=== PATIENT | male | born 1960 | race Caucasian/White ===

== ENCOUNTER 2022-03-29 05:34 | Inpatient (IN) | payer MEDICARE, OTHER ==
[~2022-03-29] VITALS: Ht 167.6 cm; Wt 89.8 kg
[2022-03-29] MEDS ORDERED: LIDOCAINE HCL 2% 20 ML VIAL ONE (06:11)
[2022-03-29 06:48] LABS: HEMATOCRIT 41.7 % (36.7-47.1); MEAN CORPUSCULAR HEMOGLOBIN 28.3 uug (23.8-33.4); MEAN CORPUSCULAR VOLUME 85.2 fL (73.0-96.2); PLATELET COUNT (AUTO) 221 K/uL (152-348)
[2022-03-29 07:08] LABS: CARBON DIOXIDE 29 mmol/L (21-32); CHLORIDE 99 mmol/L (98-107); GLUCOSE 94 mg/dL (74-106); POTASSIUM 4.2 mmol/L (3.5-5.1); UREA NITROGEN, BLOOD 20 mg/dL (7-18)
[2022-03-29 07:13] LABS: ALANINE AMINOTRANSFERASE 20 U/L (16-63); ALKALINE PHOSPHATASE 63 U/L (50-136); ASPARTATE AMINOTRANSFERASE 21 U/L (15-37); BILIRUBIN,DIRECT 0.1 mg/dL (0.0-0.2); BILIRUBIN,TOTAL 0.3 mg/dL (0.2-1.0); TOTAL PROTEIN, SERUM 6.1 g/dL (6.4-8.2)
[2022-03-29 07:29] LABS: ACETAMINOPHEN < 2.0 ug/mL (10-30)
[2022-03-29] MEDS ORDERED: IBUPROFEN 600 MG TABLET PO ONE (07:30)
[2022-03-29] MEDS ORDERED: IBUPROFEN 600 MG TABLET ONE (07:47)
[2022-03-29] MEDS ORDERED: LORAZEPAM 0.5 MG TABLET PO PRN (08:30)
[2022-03-29] MEDS ORDERED: MAGNESIUM HYDROXIDE 30 ML LIQUID UDC PO PRN (08:30)
[2022-03-29] MEDS ORDERED: MAG HYDROX/AL HYDROX/SIMETH 30 ML LIQUID UDC PO PRN (08:30)
[2022-03-29] MEDS ORDERED: BLOOD SUGAR DIAGNOSTIC 1 EACH STRIP VI ONE (09:00)
[2022-03-29 10:37] VITALS: BP 109/83
[2022-03-29] MEDS ORDERED: ROSU20TA2 PO (11:40)
[2022-03-29] MEDS ORDERED: SULF1TAB48 PO (11:40)
[2022-03-29] MEDS ORDERED: DULO60CA45 PO (11:40)
[2022-03-29] MEDS ORDERED: FURO40TA5 PO (11:40)
[2022-03-29] MEDS ORDERED: BACL20TA PO (11:40)
[2022-03-29] MEDS ORDERED: GABA-532 PO (11:40)
[2022-03-29] MEDS ORDERED: ENTE0.5T11 PO (11:40)
[2022-03-29] MEDS ORDERED: CARB200T PO ×2 (11:40)
[2022-03-29] MEDS ORDERED: PRED20TA PO (11:40)
[2022-03-29 11:45] LABS: ETHANOL < 3 MG/DL (0-0)
[2022-03-29] MEDS ORDERED: DULOXETINE 30 MG CAPSULE.DR PO SCH (13:00)
[2022-03-29] MEDS ORDERED: PRED10TA PO (14:09)
[2022-03-29 15:08] VITALS: BP 104/72
[2022-03-29] MEDS: BACLOFEN 20 MG TABLET PO SCH ×2 (17:49→21:00)
[2022-03-29] MEDS: DULOXETINE 60 MG CAPSULE.DR PO SCH (17:49)
[2022-03-29 18:13] LABS: *BILIRUBIN,URIN 1+ (NEGATIVE); *BLOOD, URINE NEGATIVE (NEGATIVE); *CLARITY,URINE CLEAR (CLEAR); *COLOR,URINE DARK YELLOW (YELLOW); *KETONES,URINE NEGATIVE (NEGATIVE); *UROBILINOGEN,URINE 0.2 E.U./dl (NORMAL); LEUKOCYTE ESTERASE ,URINE NEGATIVE (NEGATIVE); NITRITE, URINE NEGATIVE (NEGATIVE); PH,URINE 5.5 (5.0-8.0); UGLUCOSE NEGATIVE (NEGATIVE)
[2022-03-29 20:04] VITALS: BP 102/64
[2022-03-29 20:12] LABS: *AMPHETAMINE, URINE NEGATIVE (NEGATIVE); *CANNABINOID, URINE NEGATIVE (NEGATIVE); *COCCAINE, URINE NEGATIVE (NEGATIVE); *OPIATE, URINE NEGATIVE (NEGATIVE); *PHENCYCLIDINE SCREEN,URINE NEGATIVE (NEGATIVE)
[2022-03-29] MEDS: ATORVASTATIN 40 MG TABLET PO SCH (21:00)
[2022-03-29 22:53] VITALS: BP 100/60
[2022-03-30] MEDS: TEMAZEPAM 7.5 MG CAPSULE PO PRN (00:13)
[2022-03-30 06:17] VITALS: BP 112/78
[2022-03-30 07:02] LABS: HEMATOCRIT 41.4 % (36.7-47.1); MEAN CORPUSCULAR HEMOGLOBIN 28.4 uug (23.8-33.4); MEAN CORPUSCULAR VOLUME 84.8 fL (73.0-96.2); PLATELET COUNT (AUTO) 219 K/uL (152-348)
[2022-03-30 07:18] LABS: CREATININE 0.9 mg/dL (0.6-1.3); POTASSIUM 4.1 mmol/L (3.5-5.1)
[2022-03-30 07:30] VITALS: BP 115/74
[2022-03-30] MEDS ORDERED: predniSONE 20 MG TABLET PO SCH (09:00)
[2022-03-30] MEDS: ENTECAVIR 0.5MG TABLET PO SCH (09:31)
[2022-03-30] MEDS: predniSONE 10 MG TABLET PO SCH (09:31)
[2022-03-30] MEDS: BACLOFEN 20 MG TABLET PO SCH ×4 (09:32→20:04)
[2022-03-30] MEDS ORDERED: ECULIZUMAB IV ONE ×2 (13:00→14:00)
[2022-03-30] MEDS: DULOXETINE 30 MG CAPSULE.DR PO SCH (13:15)
[2022-03-30 16:00] VITALS: BP 100/78
[2022-03-30] MEDS: DULOXETINE 60 MG CAPSULE.DR PO SCH (17:54)
[2022-03-30] MEDS: ACETAMINOPHEN 325 MG TABLET PO PRN (19:57)
[2022-03-30] MEDS: ATORVASTATIN 40 MG TABLET PO SCH (20:04)
[2022-03-30 20:06] VITALS: BP 119/85
[2022-03-31 07:30] VITALS: BP 103/64
[2022-03-31] MEDS: BACLOFEN 20 MG TABLET PO SCH ×4 (09:04→21:00)
[2022-03-31] MEDS: predniSONE 10 MG TABLET PO SCH (09:06)
[2022-03-31] MEDS: ENTECAVIR 0.5MG TABLET PO SCH (09:07)
[2022-03-31] MEDS: DULOXETINE 30 MG CAPSULE.DR PO SCH (13:12)
[2022-03-31] MEDS ORDERED: CARBAMAZEPINE 200 MG TABLET PO SCH ×2 (14:00→18:00)
[2022-03-31] MEDS ORDERED: GABAPENTIN 100 MG CAPSULE PO SCH (14:00)
[2022-03-31 16:00] VITALS: BP 108/72
[2022-03-31] MEDS ORDERED: CARB-103 PO ×2 (16:42)
[2022-03-31] MEDS ORDERED: GABA300C PO (16:43)
[2022-03-31] MEDS: SULFAMETH/TRIMETH 800/160 MG TABLET PO SCH (17:21)
[2022-03-31] MEDS: GABAPENTIN 300 MG CAPSULE PO SCH (17:27)
[2022-03-31] MEDS: DULOXETINE 60 MG CAPSULE.DR PO SCH (17:28)
[2022-03-31] MEDS: CARBAMAZEPINE 200 MG PO SCH (17:28)
[2022-03-31] MEDS ORDERED: CARBAMAZEPINE XR 200 MG TAB.SR.12H PO SCH (18:00)
[2022-03-31 21:00] VITALS: BP 110/80
[2022-03-31] MEDS: ATORVASTATIN 40 MG TABLET PO SCH (21:00)
[2022-04-01] MEDS: ACETAMINOPHEN 325 MG TABLET PO PRN ×2 (06:46→23:56)
[2022-04-01 07:30] VITALS: BP 115/96
[2022-04-01] MEDS ORDERED: CARBAMAZEPINE XR 200 MG TAB.SR.12H PO SCH (09:00)
[2022-04-01] MEDS: BACLOFEN 20 MG TABLET PO SCH ×4 (09:18→20:07)
[2022-04-01] MEDS: CARBAMAZEPINE 200 MG PO SCH ×2 (09:18→17:08)
[2022-04-01] MEDS: predniSONE 10 MG TABLET PO SCH (09:19)
[2022-04-01] MEDS: ENTECAVIR 0.5MG TABLET PO SCH (09:19)
[2022-04-01] MEDS: GABAPENTIN 300 MG CAPSULE PO SCH ×3 (09:23→17:05)
[2022-04-01] MEDS: SULFAMETH/TRIMETH 800/160 MG TABLET PO SCH (09:23)
[2022-04-01] MEDS: DULOXETINE 30 MG CAPSULE.DR PO SCH (12:50)
[2022-04-01 16:00] VITALS: BP 111/88
[2022-04-01] MEDS: DULOXETINE 60 MG CAPSULE.DR PO SCH (17:05)
[2022-04-01] MEDS: ATORVASTATIN 40 MG TABLET PO SCH (20:07)
[2022-04-01 20:24] VITALS: BP 126/64
[2022-04-02] MEDS: ACETAMINOPHEN 325 MG TABLET PO PRN ×2 (06:49→20:21)
[2022-04-02 07:30] VITALS: BP 111/78
[2022-04-02] MEDS: SULFAMETH/TRIMETH 800/160 MG TABLET PO SCH (09:11)
[2022-04-02] MEDS: BACLOFEN 20 MG TABLET PO SCH ×4 (09:11→20:21)
[2022-04-02] MEDS: GABAPENTIN 300 MG CAPSULE PO SCH ×3 (09:11→17:23)
[2022-04-02] MEDS: ENTECAVIR 0.5MG TABLET PO SCH (09:11)
[2022-04-02] MEDS: CARBAMAZEPINE 200 MG PO SCH ×2 (09:12→17:25)
[2022-04-02] MEDS: predniSONE 10 MG TABLET PO SCH (09:12)
[2022-04-02] MEDS: DULOXETINE 30 MG CAPSULE.DR PO SCH (12:31)
[2022-04-02 16:00] VITALS: BP 117/75
[2022-04-02] MEDS: DULOXETINE 60 MG CAPSULE.DR PO SCH (17:23)
[2022-04-02 20:00] VITALS: BP 122/86
[2022-04-02] MEDS: ATORVASTATIN 40 MG TABLET PO SCH (20:20)
[2022-04-03] MEDS: ACETAMINOPHEN 325 MG TABLET PO PRN ×2 (02:51→10:11)
[2022-04-03 08:09] VITALS: BP 92/60
[2022-04-03] MEDS: ENTECAVIR 0.5MG TABLET PO SCH (09:23)
[2022-04-03] MEDS: BACLOFEN 20 MG TABLET PO SCH ×4 (09:23→20:22)
[2022-04-03] MEDS: SULFAMETH/TRIMETH 800/160 MG TABLET PO SCH (09:23)
[2022-04-03] MEDS: GABAPENTIN 300 MG CAPSULE PO SCH ×3 (09:23→16:23)
[2022-04-03] MEDS: predniSONE 10 MG TABLET PO SCH (09:23)
[2022-04-03] MEDS: CARBAMAZEPINE 200 MG PO SCH ×2 (09:24→17:31)
[2022-04-03] MEDS: DULOXETINE 30 MG CAPSULE.DR PO SCH (12:54)
[2022-04-03 16:14] VITALS: BP 122/76
[2022-04-03] MEDS: DULOXETINE 60 MG CAPSULE.DR PO SCH (16:23)
[2022-04-03 20:00] VITALS: BP 111/78
[2022-04-03] MEDS: ATORVASTATIN 40 MG TABLET PO SCH (20:22)
[2022-04-04] MEDS: TEMAZEPAM 7.5 MG CAPSULE PO PRN (00:20)
[2022-04-04] MEDS: SULFAMETH/TRIMETH 800/160 MG TABLET PO SCH (09:06)
[2022-04-04] MEDS: GABAPENTIN 300 MG CAPSULE PO SCH (09:06)
[2022-04-04] MEDS: BACLOFEN 20 MG TABLET PO SCH (09:07)
[2022-04-04] MEDS: predniSONE 10 MG TABLET PO SCH (09:08)
[2022-04-04] MEDS: CARBAMAZEPINE 200 MG PO SCH (09:08)
[2022-04-04] MEDS: ENTECAVIR 0.5MG TABLET PO SCH (09:09)
[2022-04-04] MEDS ORDERED: ARGININE/GLUTAMINE/CALCIUM BMB 1 EACH POWD.PACK PO SCH (10:00)
[2022-04-04 10:10] VITALS: BP 137/70
== END 2022-04-04 11:15 | disposition home or self-care (01) | DRG 885 ==
LOC: ER 05:36 → GPS 08:00
PROVIDERS: ADMIT Psychiatry & Neurology Psychosomatic Medicine; ATTEND Nurse Practitioner Acute Care
PROC: 0HQEXZZ Repair Left Lower Arm Skin, External Approach (ICD-10-PCS; principal; 2022-03-29)
DX: F33.0 Major depressive disorder, recurrent, mild (principal); N17.9 Acute kidney failure, unspecified; E44.0 Moderate protein-calorie malnutrition; D68.59 Other primary thrombophilia; G36.0 Neuromyelitis optica [Devic]; E87.1 Hypo-osmolality and hyponatremia; S51.812A Laceration without foreign body of left forearm, initial encounter; S51.811A Laceration without foreign body of right forearm, initial encounter; X78.9XXA Intentional self-harm by unspecified sharp object, initial encounter; Y92.89 Other specified places as the place of occurrence of the external cause; E66.01 Morbid (severe) obesity due to excess calories; Z68.32 Body mass index [BMI] 32.0-32.9, adult; E78.5 Hyperlipidemia, unspecified; E86.0 Dehydration; E86.1 Hypovolemia; Z85.51 Personal history of malignant neoplasm of bladder
CPT/HCPCS: 36415; 85025; 93005; 97161; A4663; G0480; J3490; J7512